=== PATIENT | male | born 1980 | race Caucasian/White ===

== ENCOUNTER 2021-10-17 10:51 | Emergency (ER) | payer OTHER, SELFPAY ==
[2021-10-17 12:32] VITALS: BP 166/108; PULSE 99; RESP 18; TEMP 36.6; O2SAT 99; BMI 32.5
== END 2021-10-17 21:14 | disposition left against medical advice (07) ==
PROVIDERS: Emergency Provider Emergency Medicine; PCP Internal Medicine
DX: R31.9 Hematuria, unspecified (principal); R10.9 Unspecified abdominal pain
CPT/HCPCS: 99281; 99283